=== PATIENT | female | born 1975 | race Caucasian/White ===

== ENCOUNTER 2016-12-09 23:43 | Emergency (ER) | payer SELFPAY ==
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
[2016-12-10 00:38] VITALS: BP 127/85
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
== END 2016-12-10 00:38 | disposition home or self-care (01) ==
LOC: MW.ED 23:43
DX: S00.33XA Contusion of nose, initial encounter (principal); G43.909 Migraine, unspecified, not intractable, without status migrainosus; F17.210 Nicotine dependence, cigarettes, uncomplicated; Z88.5 Allergy status to narcotic agent; Z88.0 Allergy status to penicillin; Y04.0XXA Assault by unarmed brawl or fight, initial encounter
CPT/HCPCS: 70160; 70160-26; 99283; 99284

== ENCOUNTER 2016-12-11 15:05 | Emergency (ER) | payer SELFPAY ==
[2016-12-11] MEDS ORDERED: Sodium Chloride 0.9% 1,000 ML IV ONE (15:23)
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
[2016-12-11 16:44] LABS: CHLORIDE,CL 103 mmol/L (98-110); SODIUM,NA 137 mmol/L (136-146)
[2016-12-11] MEDS ORDERED: Iopamidol 755 Mg/ML 100 ML Bottle IVPUSH STA (17:43)
[2016-12-11 18:59] VITALS: BP 130/83
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
== END 2016-12-11 18:56 | disposition home or self-care (01) ==
LOC: MW.ED 15:05
DX: K59.00 Constipation, unspecified (principal); Z88.5 Allergy status to narcotic agent; Z88.8 Allergy status to other drugs, medicaments and biological substances; F17.210 Nicotine dependence, cigarettes, uncomplicated; F31.9 Bipolar disorder, unspecified; F41.9 Anxiety disorder, unspecified
CPT/HCPCS: 36415; 74177; 80053; 81001; 81025; 85025; 93005; 96360; 99284; J7040; Q9967; 99282

== ENCOUNTER 2017-05-19 14:56 | Emergency (ER) | payer SELFPAY ==
[2017-05-19] MEDS ORDERED: Sodium Chloride 0.9% 1,000 ML IV ONE ×2 (15:02→16:35)
[2017-05-19] MEDS ORDERED: Albuterol/Ipratropium 3.0-0.5 MG/3 ML Neb Soln NEB ONE (15:02)
[2017-05-19] MEDS ORDERED: methylPREDNISolone Sodium Succinate 125 MG/2 ML SDV IVPUSH ONE (15:05)
[2017-05-19 15:06] VITALS: BP 126/93
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
[2017-05-19 15:44] LABS: CHLORIDE,CL 107 mmol/L (98-110); SODIUM,NA 141 mmol/L (136-146)
--- NOTE | 2017-05-22 10:43 | CR ---
EXAM DATE: 05/19/17 PATIENT'S AGE: 41 Patient: TENZIN VIZCAINO Facility: [place], [place] Site Site : 1975 Study: XRay Chest [id number] 3:34:34 PM Ordering Physician: Ananda Solis Final Report: Indication: Shortness of breath Technique: Chest 1 view Comparison: None Findings/Impression: Cardiovascular and mediastinum: Heart size and vasculature are normal in caliber and appearance. Mediastinum is within normal limits. Lungs and pleural space: There is a 1.3 cm round density overlying the left lower lung field. No sign of pleural effusion. No pneumothorax. Bones and soft tissues: There is a similar contour abnormality of the right posterior 7th rib which may be secondary to remote injury. There is remote appearing deformity of the distal left clavicle. Impression: : 1. No focal infiltrate identified. 2. Round density overlying the left lower lung field. Although this may represent a nipple shadow, a repeat frontal chest radiograph with nipple markers is recommended to exclude a pulmonary nodule. Dictated by Eden Gonzalez MD @ May 19 2017 3:43PM (Electronic Signature) Report Signed by Proxy. BROOKE
--- NOTE | 2017-05-22 11:31 | CR ---
EXAM DATE: 05/19/17 PATIENT'S AGE: 41 Patient: TENZIN VIZCAINO Facility: [place], [place] Site . Site : 1975 Study: XRay Chest [id number] 4:49:07 PM Ordering Physician: Jagruti Malave Final Report: INDICATION: Pain, Shortness of breath TECHNIQUE: Chest radiograph COMPARISON: 05/19/2017 FINDINGS: Mediastinum: The heart silhouette is normal in size and morphology. The mediastinum is normal in appearance. Lungs: The previously noted nodular density in the left lower lung zone is not seen and may be due to an overlying artifact or prominent nipple silhouette. No sign of pleural effusion seen. No pneumothorax is identified. Bones and soft tissue: Mild dextroscoliosis of the lower thoracic spine is noted. Miscellaneous: Bilateral metallic nipple markers are present. IMPRESSION: 1. No acute cardiopulmonary disease is seen. Dictated by Derrick Harvey MD @ 05/19/2017 4:53:04 PM Dictated by: Derrick Harvey MD @ 05/19/2017 16:53:09 (Electronic Signature) Report Signed by Proxy. [facility]
== END 2017-05-19 18:30 | disposition home or self-care (01) ==
LOC: MW.ED 14:56
DX: J02.9 Acute pharyngitis, unspecified (principal); E86.0 Dehydration; N39.0 Urinary tract infection, site not specified; F19.10 Other psychoactive substance abuse, uncomplicated; F17.210 Nicotine dependence, cigarettes, uncomplicated; Z88.0 Allergy status to penicillin; Z88.5 Allergy status to narcotic agent
CPT/HCPCS: 36415; 71010; 80053; 80305; 81001; 81025; 82550; 82553; 84484; 85025; 86308; 87081; 87804; 87880; 93005; 96361; 96374; 99285; J2930; J7040

== ENCOUNTER → 2019-05-23 | Day surgery (SDC) | payer SELFPAY ==
[2019-05-22 10:36] LABS: BLOOD UREA NITROGEN,BUN 9 mg/dL (7.0-18.0); CARBON DIOXIDE,CO2 28.4 mmol/L (21.0-32.0); CHLORIDE,CL 102 mmol/L (98-107); GLUCOSE RANDOM 88 mg/dL (74-106); POTASSIUM,K 3.4 mmol/L (3.5-5.1); SODIUM,NA 141 mmol/L (136-145)
[~2019-05-23] MED LIST: Fluorescein 5 ML Vial ONE; Lactated Ringers 1,000 ML IV SCH; Sodium Chloride 0.9% 10 ML SDV IV PRN; Sodium Chloride 0.9% 10 ML Syringe FLUSH PRN; Sodium Chloride 0.9% 2.5 ML Syringe FLUSH PRN; ceFAZolin 1 GM in Premix Bag 1 BAG IV ONE
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
[2019-05-23 12:24] VITALS: BP 119/77; PULSE 84
[2019-05-23 12:27] LABS: BLOOD UREA NITROGEN,BUN 13 mg/dL (7.0-18.0); CARBON DIOXIDE,CO2 26.2 mmol/L (21.0-32.0); CHLORIDE,CL 104 mmol/L (98-107); GLUCOSE RANDOM 81 mg/dL (74-106); POTASSIUM,K 3.4 mmol/L (3.5-5.1); SODIUM,NA 140 mmol/L (136-145)
== END ==
LOC: MW.SDS 06:59 → MW.OB 09:09
PROVIDERS: ATTEND Obstetrics & Gynecology
DX: N92.0 Excessive and frequent menstruation with regular cycle (principal); D64.9 Anemia, unspecified; F17.210 Nicotine dependence, cigarettes, uncomplicated; Z53.09 Procedure and treatment not carried out because of other contraindication; Z79.899 Other long term (current) drug therapy
CPT/HCPCS: 36415; 36430; 80048; 80053; 83735; 84703; 85025; 85027; 85384; 85610; 85730; 86850; 86900; 86901; 86920; 86921; 86922; J7120; P9016

== ENCOUNTER 2022-01-02 07:14 | Emergency (ER) | payer OTHER ==
[2022-01-02 09:09] LABS: CARBON DIOXIDE,CO2 30.7 mmol/L (21.0-32.0); POTASSIUM,K 3.8 mmol/L (3.5-5.1)
[2022-01-02] MEDS ORDERED: Iopamidol 755 MG/ML 500 ML Multipack Bottle IVPUSH STA (09:39)
[2022-01-02] MEDS ORDERED: Ketorolac 30 MG/ML SDV IVPUSH ONE (10:15)
[2022-01-02 12:22] VITALS: BP 105/68; PULSE 102
== END 2022-01-02 12:20 | disposition home or self-care (01) ==
LOC: MW.ED 07:14
DX: L03.90 Cellulitis, unspecified (principal); F17.210 Nicotine dependence, cigarettes, uncomplicated; Z88.5 Allergy status to narcotic agent; Z88.0 Allergy status to penicillin; Z88.8 Allergy status to other drugs, medicaments and biological substances
CPT/HCPCS: 36415; 70491; 80048; 85025; 87040; 96365; 96375; 99284; J1885; J3370; J7050; Q9967

== ENCOUNTER 2024-05-12 17:22 | Emergency (ER) | payer SELFPAY ==
[2024-05-12] MEDS: Acetaminophen/HYDROcodone 325-5 MG Tab PO ONE (19:29)
[2024-05-12 21:22] VITALS: BP 130/80; PULSE 82
== END 2024-05-12 21:18 | disposition home or self-care (01) ==
LOC: MW.ED 17:22
DX: S02.2XXA Fracture of nasal bones, initial encounter for closed fracture (principal); Z75.8 Other problems related to medical facilities and other health care; Z88.5 Allergy status to narcotic agent; Y04.8XXA Assault by other bodily force, initial encounter
CPT/HCPCS: 70450; 70486; 72125; 99284; A9270; 99283